=== PATIENT | male | born 1990 | race Native Hawaiian/Other Pacific Islander ===

== ENCOUNTER 2017-04-21 10:12 | Emergency (ER) | payer OTHER ==
[2017-04-21 10:17] VITALS: BP 140/84; PULSE 80; TEMP 97; O2SAT 99
[2017-04-21 10:18] VITALS: BMI 26.2
--- NOTE | 2017-04-21 10:27 | ED PDOC ---
HPI: CCC, URI, Sore Throat Time Seen by Provider: 04/21/17 10:22 Chief Complaint (Nursing): ENT Problem Chief Complaint (Provider): ear pain History Per: Patient Additional Complaint(s): 27-year-old male with no past medical history presents to emergency department with pain and swelling to posterior left ear 1 week. Patient states area started as a small pimple and has since worsened. Patient has been applying topical tumeric but this has not helped. He denies active drainage or fever or chills. Patient rates pain as 7 out of 10. No medication taken for pain relief. Past Medical History Reviewed: Historical Data, Nursing Documentation, Vital Signs Vital Signs: Last Vital Signs Temp 97 F L 04/21/17 10:16 Pulse 80 04/21/17 10:16 Resp BP 140/84 04/21/17 10:16 Pulse Ox 99 04/21/17 10:27 - Medical History PMH: No Chronic Diseases - Surgical History Surgical History: No Surg Hx - Family History Family History: States: No Known Family Hx - Living Arrangements Living Arrangements: With Family - Social History Current smoker - smoking cessation education provided: Yes Alcohol: Social Drugs: Denies - Home Medications Home Medications: Ambulatory Orders Medication Instructions Recorded Clindamycin [Cleocin] 300 mg PO TID #21 cap 04/21/17 Ibuprofen [Motrin Tab] 800 mg PO Q8 PRN #20 tab 04/21/17 - Allergies Allergies/Adverse Reactions: Allergies Allergy/AdvReac Type Severity Reaction Status Date / Time No Known Allergies Allergy Verified 04/21/17 10:21 Review of Systems ROS Statement: Except As Marked, All Systems Reviewed And Found Negative Constitutional: Negative for: Fever ENT: Positive for: Other (left ear pain) Physical Exam - Reviewed Nursing Documentation Reviewed: Yes Vital Signs Reviewed: Yes - Physical Exam Appears: Positive for: Well, Non-toxic, No Acute Distress Skin: Negative for: Rash Eye Exam: Positive for: Normal appearance ENT: Positive for: Other (non-fluctuant 2 cm abscess noted to posterior left earlobe, moderate tenderness to palpation, no central pointing or active drainage, tympanic membranes are intact bilaterally) Neck: Positive for: Normal Neurologic/Psych: Positive for: Alert, Oriented - ECG O2 Sat by Pulse Oximetry: 99 Pulse Ox Interpretation: Normal Medical Decision Making Medical Decision Making: Impression: Abscess to left posterior earlobe Plan: PO motrin Patient was instructed to apply warm compresses with Epsom salts to affected area as often as possible and was prescribed clindamycin and Motrin. Advised recheck on Sunday or RTED sooner if acutely worse. Disposition - Clinical Impression Clinical Impression: Abscess - Patient ED Disposition Is Patient to be Admitted: No Counseled Patient/Family Regarding: Diagnosis, Need For Followup, Rx Given - Disposition Referrals: [facility] [Outside] Disposition: Routine/Home Disposition Time: 10:47 Condition: STABLE Additional Instructions: Take rx meds as directed. Apply warm compresses to affected area with warm water and epsom salts as often as possible. Return Sunday for wound re-check. Prescriptions: Clindamycin [Cleocin] 300 mg PO TID #21 cap Ibuprofen [Motrin Tab] 800 mg PO Q8 PRN #20 tab PRN Reason: Pain, Moderate (4-7) Instructions: Abscess (ED) Forms: [facility] (Burkinan)
== END 2017-04-21 11:03 | disposition home or self-care (01) ==
LOC: H.ER 10:12
DX: S01.512A Laceration without foreign body of oral cavity, initial encounter (principal)